=== PATIENT | female | born 1965 | race Caucasian/White ===

== ENCOUNTER 2017-09-03 09:15 | Emergency (ER) | payer MEDICARE ==
--- NOTE | 2017-09-03 09:55 | EDM.PDOC ---
ED HPI GENERAL MEDICAL PROBLEM - General Chief Complaint: Neurological Problem Stated Complaint: STROKE? Time Seen by Provider: 09/03/17 09:37 Source of Information: Reports: Patient, EMS, Family, RN Notes Reviewed History Limitations: Reports: No Limitations - History of Present Illness INITIAL COMMENTS - FREE TEXT/NARRATIVE: 52-year-old female presents to the emergency department today via EMS services for seizure activity, she is initially postictal on arrival and noncommunicative however after about 20 minutes she starts to regain her sensorium. She states the seizure event she had today was very typical for her usual aura of difficulty with speech and difficulty with ambulation at with a disequilibrium. Last seizure was in 2014 she is on the medication of Lamictal. She does follow with neurology last visit was April of this year. 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: Musculoskeletal History: Reports: Fracture Neurological History: Reports: Seizure (Focal onset epilepsy) - Past Surgical History GI Surgical History: Reports: Appendectomy Female Surgical History: Reports: Section Musculoskeletal Surgical History: Reports: Other (See Below) Other Musculoskeletal Surgeries/Procedures:: left elbow surgery Social & Family History - Tobacco Use Smoking Status *Q: Heavy Tobacco Smoker Years of Tobacco use: 30 Packs/Tins Daily: 1 - Recreational Drug Use Recreational Drug Use: No ED ROS GENERAL - Review of Systems Review Of Systems: See Below Constitutional: Reports: No Symptoms HEENT: Reports: No Symptoms Cardiovascular: Reports: No Symptoms GI/Abdominal: Reports: No Symptoms : Reports: No Symptoms Musculoskeletal: Reports: No Symptoms Skin: Reports: No Symptoms Neurological: Reports: Seizure - Physical Exam Exam: See Below Exam Limited By: No Limitations General Appearance: Alert, WD/WN, No Apparent Distress Eye Exam: Bilateral Eye: Normal Inspection (Pupils equal and round) Head Exam: Atraumatic, Normocephalic Neck: Normal Inspection, Supple, Non-Tender, Full Range of Motion Respiratory/Chest: No Respiratory Distress, Lungs Clear, Normal Breath Sounds, No Accessory Muscle Use Cardiovascular: Regular Rate, Rhythm, No Murmur Neuro Exam (Abbreviated): Alert, Oriented, CN II-XII Intact, Normal Cognition Course - Vital Signs Last Recorded V/S: Last Vital Signs Temp 97.7 F 09/03/17 09:19 Pulse 54 L 09/03/17 09:19 Resp 12 09/03/17 09:19 BP 145/79 H 09/03/17 09:19 Pulse Ox 98 09/03/17 09:19 Departure - Departure Time of Disposition: 09:54 Disposition: Home, Self-Care 01 Condition: Fair Clinical Impression: Epilepsy Qualifiers: Epilepsy type: generalized idiopathic Intractability: not intractable Status epilepticus: without status epilepticus Qualified Code(s): G40.309 - Generalized idiopathic epilepsy and epileptic syndromes, not intractable, without status epilepticus - Discharge Information Referrals: PCP,None [Primary Care Provider] - Additional Instructions: Please follow-up with your neurologist as soon as practical, call or return to the emergency department worsening of symptoms - Assessment/Plan Plan: Assessment Acuity = acute Site and laterality = seizure activity complicated in a patient with known focal onset epilepsy Etiology = unclear etiology Manifestations = postictal state now resolved Location of injury = Home Lab values = patient declined any lab work or further workup including Lamictal levels Plan She asked to be discharged home she will contact her neurologist for further evaluation, will refrain from driving until reevaluated by neurology This note was dictated using [employer] voice recognition software please call with any questions on syntax or grammar.
== END 2017-09-03 10:03 | disposition home or self-care (01) ==
LOC: JP.ED 09:15
DX: G40.309 Generalized idiopathic epilepsy and epileptic syndromes, not intractable, without status epilepticus (principal); F17.210 Nicotine dependence, cigarettes, uncomplicated; Z88.8 Allergy status to other drugs, medicaments and biological substances
CPT/HCPCS: 99285

== ENCOUNTER 2019-05-31 07:58 | Emergency (ER) | payer MEDICARE ==
--- NOTE | 2019-05-31 08:03 | EDM.PDOC ---
ED HPI GENERAL MEDICAL PROBLEM - General Stated Complaint: MEDICAL VIA [facility] Time Seen by Provider: 05/31/19 08:00 Source of Information: Reports: Patient, EMS, RN Notes Reviewed History Limitations: Reports: No Limitations - History of Present Illness INITIAL COMMENTS - FREE TEXT/NARRATIVE: 54-year-old female presents emergency department today via EMS services, she has a known seizure disorder has been seizure-free for approximately 1 year. Sometime during the evening had a seizure-like event awoke this morning confused tried to call a friend who subsequently ended up calling 911 this is approximately 620 in the morning. EMS services arrived she was able to communicate with them no focal neurologic deficit however she complained of a headache 9 out of 10 left facial numbness with left arm numbness both of these symptoms are new for her. She has no focal neurologic deficit Gerlach stroke scale was negative. She does admit that she may have missed some evening doses of her lamotrigine she has not had her levels checked in a while. 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: Musculoskeletal History: Reports: Fracture Neurological History: Reports: Seizure (Focal onset epilepsy) - Past Surgical History GI Surgical History: Reports: Appendectomy Female Surgical History: Reports: Section Musculoskeletal Surgical History: Reports: Other (See Below) Other Musculoskeletal Surgeries/Procedures:: left elbow surgery Social & Family History - Tobacco Use Smoking Status *Q: Unknown Ever Smoked ED ROS GENERAL - Review of Systems Review Of Systems: See Below Constitutional: Reports: No Symptoms HEENT: Reports: No Symptoms Respiratory: Reports: No Symptoms Cardiovascular: Reports: No Symptoms GI/Abdominal: Reports: No Symptoms : Reports: No Symptoms Musculoskeletal: Reports: No Symptoms Skin: Reports: No Symptoms Neurological: Reports: Headache, Numbness, Tingling ED EXAM, NEURO - Physical Exam Exam: See Below Text/Narrative:: General: Female, not in any distress, alert and oriented x3 HEENT: head is atraumatic normocephalic, eyes pupils equal round reactive to light, sclera clear no conjunctivitis appreciated extraocular eye movements intact. Ears tympanic membranes clear and ivory landmarks and light reflex are present bilaterally canals are clear. Nose no septal deviation, nares are clear, no blood present. Mouth mucosa is moist and pink no erythema or exudate noted in soft palate, tongue is midline uvula is midline, dentition is intact. Neck: Supple no thyromegaly no tracheal deviation. Nodes: Cervical nodes subclavicular nodes nontender no palpable lymphadenopathy noted. Lungs: clear to auscultation bilaterally with symmetrical respirations, no adventitious noise appreciated. CV: Regular rate and rhythm S1 and S2 appreciated no murmurs rubs or gallops noted. Abdomen: Soft, nontender, no palpable masses or organomegaly appreciated, no distention no guarding bowel sounds are present, [scars ]. Neuro: Cranial nerves II test with pupillary light reflex 4 mm to 2 mm bilaterally, CN III test pupillary constriction, lid elevation and eye abduction bilaterally, CN IV downward movement of eyes bilaterally, CN V good jaw movement, CN lateral deviation of the eyes bilaterally to finger movement , CN VII symmetrical smile shows teeth without difficulty, CN VIII pass finger rub to ears bilaterally, CN IX adequate voice and tone, CN X adequate voice and tone no difficulty swallowing, CN XI can shrug shoulders without difficulty, CN XII can stick tongue out without difficulty, cranial nerves II to XII intact as tested, Skin: Warm and dry, intact Extremities: No lower extremity edema appreciated, pedal pulse is +2. Power is 5 x 5 upper lower extremities no dysdiadochokinesis appreciated full range of motion of all extremities without difficulty Course - Vital Signs Last Recorded V/S: Last Vital Signs Temp 95.9 F L 05/31/19 08:48 Pulse 62 05/31/19 08:48 Resp 16 05/31/19 08:48 BP 150/66 H 05/31/19 08:48 Pulse Ox 97 05/31/19 08:48 - Orders/Labs/Meds Orders: Active Orders 24 hr Category Date Time Status EKG Documentation Completion [RC] ASDIRECTED Care 05/31/19 08:12 Active CELL COUNT,CSF [BF] Routine Lab 05/31/19 10:51 Received CELL COUNT,CSF [BF] Routine Lab 05/31/19 10:57 Received CELL COUNT,CSF [BF] Routine Lab 05/31/19 10:58 Received CELL COUNT,CSF [BF] Routine Lab 05/31/19 10:59 Received CULTURE CSF + SMEAR [RM] Routine Lab 05/31/19 10:51 Received LAMOTRIGINE (LAMICTAL), SERUM Stat Lab 05/31/19 08:30 Received Sodium Chloride 0.9% [Saline Flush] Med 05/31/19 08:11 Active 10 ml FLUSH ASDIRECTED PRN EKG 12 Lead [EK] Urgent Ther 05/31/19 08:11 Stop Req Medication Orders Sodium Chloride (Saline Flush) 10 ml FLUSH ASDIRECTED PRN PRN Reason: Keep Vein Open Labs: Laboratory Tests 05/31/19 05/31/19 05/31/19 Range/Units 08:30 08:30 08:30 WBC 6.9 (4.5-11.0) K/uL RBC 4.94 (3.30-5.50) M/uL Hgb 14.3 (12.0-15.0) g/dL Hct 43.7 (36.0-48.0) % MCV 89 (80-98) fL MCH 29 (27-31) pg MCHC 33 (32-36) % Plt Count 344 (150-400) K/uL Neut % (Auto) 59 (36-66) % Lymph % (Auto) 34 (24-44) % [place] % (Auto) 6 (2-6) % Eos % (Auto) 1 L (2-4) % Baso % (Auto) 1 (0-1) % PT 10.7 (9.5-12.0) sec INR 0.99 (0.80-1.20) APTT 25.2 L (27.0-36.0) sec Sodium 143 (140-148) mmol/L Potassium 3.6 (3.6-5.2) mmol/L Chloride 107 (100-108) mmol/L Carbon Dioxide 28 (21-32) mmol/L Anion Gap 8.3 (5.0-14.0) mmol/L BUN 9 (7-18) mg/dL Creatinine 0.7 (0.6-1.0) mg/dL Est Cr Clr Drug Dosing 80.75 mL/min Estimated GFR (MDRD) > 60 (>60) Glucose 97 (74-106) mg/dL Lactic Acid (0.4-2.0) mmol/L Calcium 8.5 (8.5-10.1) mg/dL Total Bilirubin 0.3 (0.2-1.0) mg/dL AST 17 (15-37) U/L ALT 22 (12-78) U/L Alkaline Phosphatase 77 (46-116) U/L Troponin I < 0.017 (0.000-0.056) ng/mL Total Protein 6.5 (6.4-8.2) g/dL Albumin 3.3 L (3.4-5.0) g/dL Globulin 3.2 (2.3-3.5) g/dL Albumin/Globulin Ratio 1.0 L (1.2-2.2) CSF Glucose (40-70) mg/dL CSF Total Protein (15-45) mg/dL 05/31/19 05/31/19 Range/Units 08:30 10:51 WBC (4.5-11.0) K/uL RBC (3.30-5.50) M/uL Hgb (12.0-15.0) g/dL Hct (36.0-48.0) % MCV (80-98) fL MCH (27-31) pg MCHC (32-36) % Plt Count (150-400) K/uL Neut % (Auto) (36-66) % Lymph % (Auto) (24-44) % [place] % (Auto) (2-6) % Eos % (Auto) (2-4) % Baso % (Auto) (0-1) % PT (9.5-12.0) sec INR (0.80-1.20) APTT (27.0-36.0) sec Sodium (140-148) mmol/L Potassium (3.6-5.2) mmol/L Chloride (100-108) mmol/L Carbon Dioxide (21-32) mmol/L Anion Gap (5.0-14.0) mmol/L BUN (7-18) mg/dL Creatinine (0.6-1.0) mg/dL Est Cr Clr Drug Dosing mL/min Estimated GFR (MDRD) (>60) Glucose (74-106) mg/dL Lactic Acid 1.0 (0.4-2.0) mmol/L Calcium (8.5-10.1) mg/dL Total Bilirubin (0.2-1.0) mg/dL AST (15-37) U/L ALT (12-78) U/L Alkaline Phosphatase (46-116) U/L Troponin I (0.000-0.056) ng/mL Total Protein (6.4-8.2) g/dL Albumin (3.4-5.0) g/dL Globulin (2.3-3.5) g/dL Albumin/Globulin Ratio (1.2-2.2) CSF Glucose 55 (40-70) mg/dL CSF Total Protein 44.9 (15-45) mg/dL Meds: Medications Generic Name Dose Route Start Last Admin Trade Name Freq PRN Reason Stop Dose Admin Sodium Chloride 10 ml 05/31/19 08:11 Saline Flush FLUSH ASDIRECTED PRN Keep Vein Open Discontinued Medications Generic Name Dose Route Start Last Admin Trade Name Freq PRN Reason Stop Dose Admin Acetaminophen 650 mg 05/31/19 08:13 05/31/19 08:41 Tylenol PO 05/31/19 08:14 650 mg NOW ONE Administration Lamotrigine 200 mg 05/31/19 08:32 05/31/19 08:41 Lamotrigine PO 05/31/19 08:33 200 mg ONETIME ONE Administration Departure - Departure Time of Disposition: 11:47 Disposition: Home, Self-Care 01 Condition: Fair Clinical Impression: Seizure - Discharge Information Instructions: Epilepsy, [id number] Referrals: PCP,None [Primary Care Provider] - Additional Instructions: Continue with your regular medications, please contact your neurology office to inform them of what happened and if you need to increase your medications, the PAPO to gene level has been drawn will be available within a week we will contact you with results, call or return to the emergency department worsening of symptoms Sepsis Event Note - Focused Exam Vital Signs: Vital Signs Temp Pulse Resp BP Pulse Ox 05/31/19 08:48 95.9 F L 62 16 150/66 H 97 05/31/19 08:33 62 16 150/66 H 97 05/31/19 08:07 95.9 F L 61 14 169/69 H 99 Date Exam was Performed: 05/31/19 Time Exam was Performed: 11:46 - My Orders Last 24 Hours: My Active Orders 05/31/19 08:11 Sodium Chloride 0.9% [Saline Flush] 10 ml FLUSH ASDIRECTED PRN EKG 12 Lead [EK] Urgent 05/31/19 08:12 EKG Documentation Completion [RC] ASDIRECTED 05/31/19 08:30 LAMOTRIGINE (LAMICTAL), SERUM Stat 05/31/19 10:51 CELL COUNT,CSF [BF] Routine CULTURE CSF + SMEAR [RM] Routine 05/31/19 10:57 CELL COUNT,CSF [BF] Routine 05/31/19 10:58 CELL COUNT,CSF [BF] Routine 05/31/19 10:59 CELL COUNT,CSF [BF] Routine - Assessment/Plan Last 24 Hours: My Active Orders 05/31/19 08:11 Sodium Chloride 0.9% [Saline Flush] 10 ml FLUSH ASDIRECTED PRN EKG 12 Lead [EK] Urgent 05/31/19 08:12 EKG Documentation Completion [RC] ASDIRECTED 05/31/19 08:30 LAMOTRIGINE (LAMICTAL), SERUM Stat 05/31/19 10:51 CELL COUNT,CSF [BF] Routine CULTURE CSF + SMEAR [RM] Routine 05/31/19 10:57 CELL COUNT,CSF [BF] Routine 05/31/19 10:58 CELL COUNT,CSF [BF] Routine 05/31/19 10:59 CELL COUNT,CSF [BF] Routine Plan: Assessment Acuity = acute Site and laterality = breakthrough seizure Etiology = probably related to compliance with medication Manifestations = none Location of injury = Home Lab values = CBC, CMP unremarkable lumbar puncture performed demonstrated no xanthochromia initial tube revealed 4 red blood cells tube 2 was 1 red blood cell tube 3 was 0 red blood cells Plan Call discussed case with Dr. Nix neurology on-call at 1030 given history concerned about subarachnoid bleed recommended lumbar puncture which was performed by anesthesia please see notes for details minimal blood was appreciated, therefore she will be discharged home continue with her seizure medications however asked her to call her neurology office and determine if she should increase her dose because she may have missed doses and had a breakthrough seizure This note was dictated using [employer] voice recognition software please call with any questions on syntax or grammar.
[2019-05-31] MEDS ORDERED: Sodium Chloride 0.9% 10 ML Syringe FLUSH PRN (08:11)
[2019-05-31] MEDS ORDERED: Acetaminophen 325 MG Tab PO ONE (08:13)
--- NOTE | 2019-05-31 08:25 | CRLCT ---
INDICATION: Seizure. Headache. Left arm and facial numbness. COMPARISON: Head CT dated 03/28/2009 TECHNIQUE: A CT volumetric acquisition was performed of the brain without IV contrast. FINDINGS: There is no evidence of a subdural or epidural hematoma. There is no evidence of subarachnoid hemorrhage or intraparenchymal bleeding. The CT images reveal a normal appearance of the cerebral ventricles and basal cisterns. There is no evidence of localized tissue infarction or mass effect. There is normal ivory white matter differentiation. The mastoid air cells and middle ear cavities are clear. The calvarium appears intact. There is normal aeration of the visualized paranasal sinuses. IMPRESSION: No evidence of intracranial hemorrhage, infarct or mass effect. Dictated by Jossue Go MD @ 05/31/2019 8:23:02 AM Please note that all CT scans at this facility use dose modulation, iterative reconstruction, and/or weight-based dosing when appropriate to reduce radiation dose to as low as reasonably achievable. Dictated by: Jossue Go MD @ 05/31/2019 08:23:10 (Electronically Signed)
[2019-05-31] MEDS ORDERED: lamoTRIgine 100 MG Tab PO ONE (08:32)
--- NOTE | 2019-05-31 11:13 | ANES ---
DATE OF SERVICE: 05/31/2019 TIME: 10 o'clock. INDICATIONS: I was called by Dr. Preciador to the emergency room to evaluate Ms. Treadwell for a spinal tap. She had a recent procedure as well as some headaches and numbness. Neurologist recommended she get a spinal tap for evaluation. I did explain the procedure and the risks and benefits to the patient. She wished to proceed with a spinal tap. TECHNIQUE: She was placed in a left lateral decubitus position. Her back was prepped x3 with Betadine, 1% lidocaine skin local was used. The spinal tap was performed at L4-5 using an introducer as well as a 25-gauge Pencan needle. Clear fluid was returned and pressure of 14 cm of water was initially obtained. Subsequently, 4 tubes of approximately 0.5 mL to 1 mL of cerebrospinal fluid was obtained in separate tubes, and timed and dated. This will be then sent to the lab. The patient tolerated the procedure very nicely. Again, the spinal fluid was nice and clear. Report was given to Dr. Preciador, and Band-Aid was applied on the site. Michael Diaz CRNA /[id number]
== END 2019-05-31 11:59 | disposition home or self-care (01) ==
LOC: JP.ED 07:58
DX: G40.909 Epilepsy, unspecified, not intractable, without status epilepticus (principal); Z88.8 Allergy status to other drugs, medicaments and biological substances; Z79.899 Other long term (current) drug therapy
CPT/HCPCS: 36415; 62270; 70450; 80053; 80175; 82945; 83605; 84157; 84484; 85025; 85610; 85730; 87070; 87205; 89050; 93005; 99284; A9270

== ENCOUNTER 2021-11-24 05:01 | Emergency (ER) | payer MEDICARE, OTHER ==
[2021-11-24] MEDS ORDERED: Ondansetron 4 MG Tab.DIS PO ONE (05:53)
[2021-11-24 06:36] LABS: ESTIMATED GFR 74 mL/min (>60)
== END 2021-11-24 09:00 | disposition home or self-care (01) ==
LOC: JP.ED 05:01
DX: N95.2 Postmenopausal atrophic vaginitis (principal); K58.9 Irritable bowel syndrome, unspecified; E78.00 Pure hypercholesterolemia, unspecified; I10 Essential (primary) hypertension; K21.9 Gastro-esophageal reflux disease without esophagitis; F17.210 Nicotine dependence, cigarettes, uncomplicated; Z88.8 Allergy status to other drugs, medicaments and biological substances; Z86.16 Personal history of COVID-19
CPT/HCPCS: 36415; 74176; 76830; 76856; 80053; 81001; 85025; 87210; 99284; Q0162

== ENCOUNTER 2023-01-28 07:20 | Day surgery (SDC) | payer MEDICAID, OTHER ==
[2023-01-28] MEDS ORDERED: Sodium Chloride 0.9% 10 ML Syringe FLUSH SCH (07:55)
== END 2023-01-28 09:00 | disposition home or self-care (01) ==
LOC: JP.SDS 07:20
PROVIDERS: ATTEND Ophthalmology
DX: H26.9 Unspecified cataract (principal); I10 Essential (primary) hypertension; J44.9 Chronic obstructive pulmonary disease, unspecified; E78.00 Pure hypercholesterolemia, unspecified; G40.909 Epilepsy, unspecified, not intractable, without status epilepticus; F17.200 Nicotine dependence, unspecified, uncomplicated; Z88.8 Allergy status to other drugs, medicaments and biological substances
CPT/HCPCS: V2632

== ENCOUNTER 2023-02-11 05:48 | Day surgery (SDC) | payer MEDICAID, OTHER ==
[2023-02-11] MEDS ORDERED: Sodium Chloride 0.9% 10 ML Syringe FLUSH PRN (06:45)
== END 2023-02-11 08:15 | disposition home or self-care (01) ==
LOC: JP.SDS 05:48
PROVIDERS: ATTEND Ophthalmology
DX: H26.9 Unspecified cataract (principal); I10 Essential (primary) hypertension; E78.5 Hyperlipidemia, unspecified; I20.89 Other forms of angina pectoris; K21.9 Gastro-esophageal reflux disease without esophagitis; F41.9 Anxiety disorder, unspecified; Z88.8 Allergy status to other drugs, medicaments and biological substances
CPT/HCPCS: 66984; J3490; V2632